=== PATIENT | female | born 1955 | race Caucasian/White ===

== ENCOUNTER 2022-02-03 20:12 | Observation (INO) ==
[2022-02-03 22:49] LABS: ABS Basophils 0.1 10^3/ul (0-0.2); ABS Lymphocytes 0.6 10^3/ul (1.0-4.8); ABS Neutrophils 12.4 10^3/ul (1.5-7.7); Eosinophil % 0.2 %; Hematocrit 42 % (35-47); Lymphocyte % 4.3 %; Mean Corpuscular HGB Conc 34 g/dL (31-36); Mean Corpuscular Hemoglobin 32 pg (27-31); Mean Corpuscular Volume 94 fL (80-97); Mean Platelet Volume 8.3 fL (7.4-10.4); Platelet Count 339 10^3/uL (150-450); Red Blood Count 4.42 10^6 /uL (3.70-4.87); Red Cell Distribution Width 14 % (10-15); White Blood Count 14.2 10^3/uL (3.5-10.8)
[2022-02-03] MEDS ORDERED: Ondansetron 4 mg VIAL 2 MG/ML 2 ml VIAL IV ONE (22:49)
[2022-02-03 23:20] LABS: Urine Appearance Cloudy; Urine Bilirubin Negative (Negative); Urine Blood Negative (Negative); Urine Color Amber; Urine Glucose Negative (Negative); Urine Ketones Trace (Negative); Urine Nitrite Negative (Negative); Urine Protein 1+(30 mg/dL) (Negative); Urine Specific Gravity 1.024 (1.002-1.030); Urine Urobilinogen Positive (Negative)
[2022-02-03 23:24] LABS: Urine Bacteria Absent (Absent); Urine Red Blood Cell 3+(>10/hpf) (Absent); Urine Squamous Epithelial Cell Present (Absent); Urine White Blood Cell Absent (Absent)
[2022-02-03] MEDS ORDERED: Albuterol HFA INHALER 8 gm MDI INH ONE (23:28)
[2022-02-03 23:40] LABS: Albumin 4.4 g/dL (3.2-5.2); Albumin/Globulin Ratio 1.3 (1-3); C Reactive Protein 25.27 mg/L (<8.01); Calcium 10.1 mg/dL (8.6-10.3); Globulin 3.3 g/dL (2-4); Potassium 3.8 mmol/L (3.5-5.0); Total Bilirubin 0.8 mg/dL (0.2-1.0); Total Protein 7.7 g/dL (6.4-8.9); eGFR CKD-EPI 88.6 (>60)
[2022-02-04] MEDS ORDERED: methylPREDNISolone SOD SUCC 125 mg 2 ML VIAL IV ONE (00:53)
[2022-02-04] MEDS ORDERED: Morphine 4 MG/ML VIAL (1 ml) IV ONE ×2 (00:53→04:31)
[2022-02-04] MEDS ORDERED: Iohexol 300 (CONTRAST) 10 ML SDV IV ONE (01:53)
[2022-02-04] MEDS ORDERED: Metoclopramide 5 MG/ML VIAL (10 mg) IV ONE (06:19)
[2022-02-04] MEDS ORDERED: Albuterol HFA INHALER 8 gm MDI INH ONE (06:20)
[2022-02-04] MEDS ORDERED: Ondansetron 4 mg VIAL 2 MG/ML 2 ml VIAL IV PRN (07:35)
[2022-02-04] MEDS ORDERED: Metoclopramide 5 MG/ML VIAL (10 mg) IV PRN (07:38)
[2022-02-04] MEDS ORDERED: Albuterol HFA INHALER 8 gm MDI INH PRN (08:26)
[2022-02-04] MEDS ORDERED: Iohexol 350 (CONTRAST) 500 ML MDV IV ONE (08:46)
[2022-02-04] MEDS: Aspirin EC 81 mg TAB.EC (enteric coated) PO SCH (10:29)
[2022-02-04] MEDS: Lactulose 30 ml UDC PO SCH ×3 (10:30→20:41)
[2022-02-04] MEDS: Mometasone/Formoter 100/5 MDI INH SCH ×2 (13:17→19:34)
[2022-02-04] MEDS: SPIRIVA Respimat (tiotropium) 2.5 mcg/inh Inhaler INH SCH (13:18)
[2022-02-04] MEDS ORDERED: Polyethylene Glycol 3350 17 GM PACKET PO PRN (16:58)
[2022-02-04] MEDS ORDERED: Enoxaparin 40 MG/0.4 ML SYR SUBCUT SCH (21:00)
[2022-02-05 06:31] LABS: Hematocrit 35 % (35-47); Hemoglobin 11.6 g/dL (12.0-16.0); Mean Corpuscular HGB Conc 34 g/dL (31-36); Mean Corpuscular Hemoglobin 32 pg (27-31); Mean Corpuscular Volume 95 fL (80-97); Mean Platelet Volume 8.5 fL (7.4-10.4); Platelet Count 308 10^3/uL (150-450); Red Blood Count 3.68 10^6 /uL (3.70-4.87); Red Cell Distribution Width 14 % (10-15); White Blood Count 10.8 10^3/uL (3.5-10.8)
[2022-02-05 07:06] LABS: Albumin 3.1 g/dL (3.2-5.2); Albumin/Globulin Ratio 1.1 (1-3); Calcium 8.6 mg/dL (8.6-10.3); Globulin 2.7 g/dL (2-4); Potassium 3.8 mmol/L (3.5-5.0); Total Bilirubin 0.6 mg/dL (0.2-1.0); Total Protein 5.8 g/dL (6.4-8.9); eGFR CKD-EPI 95.7 (>60)
[2022-02-05] MEDS: Mometasone/Formoter 100/5 MDI INH SCH (07:25)
[2022-02-05] MEDS: SPIRIVA Respimat (tiotropium) 2.5 mcg/inh Inhaler INH SCH (07:25)
[2022-02-05 08:56] VITALS: BP 119/63
[2022-02-05] MEDS: Aspirin EC 81 mg TAB.EC (enteric coated) PO SCH (09:02)
[2022-02-05] MEDS: Lactulose 30 ml UDC PO SCH (09:02)
== END 2022-02-05 13:00 | disposition home or self-care (01) ==
LOC: EDHOLD 20:12 → ED 20:12 → MEDTELE 02-04 10:34
PROVIDERS: ADMIT Hospitalist; ATTEND Hospitalist